=== PATIENT | male | born 1985 | race Caucasian/White ===

== ENCOUNTER 2024-01-23 10:21 | Emergency (ER) | payer OTHER, SELFPAY ==
[2024-01-23 10:45] VITALS: BP 119/78; PULSE 53; RESP 18; TEMP 36.4; O2SAT 100
--- NOTE | 2024-01-23 13:48 | ED.BACK ---
HPI - Back Pain/Injury General Chief Complaint: Back Pain/Injury Stated Complaint: right lower back pain Time Seen by Provider: 01/23/24 13:27 Source: patient and RN notes reviewed Mode of arrival: ambulatory Limitations: no limitations History of Present Illness HPI Narrative: This is a 39 year old male who presents for evaluation of right lower back pain. He states he noticed on that he has right lower back pain that is worse with bending, moving and coughing. He has been taking ibuprofen intermittently for pain. He states his pain was severe on . His pain has improved and it will occur intermittently now with certain positions. He denies pain radiating to his abdomen or down his leg. He also denies leg weakness, numbness or tingling. He dneies urinary complaints. HE does not have pain at this time. Related Data Allergies Allergy/AdvReac Type Severity Reaction Status Date / Time No Known Allergies Allergy Verified 01/23/24 10:23 Review of Systems Constitutional: Constitutional: Denies weakness Cardiovascular: Cardiovascular: Denies syncope, Denies rapid heart rate, Denies irregular heart rhythm, Denies leg edema and Denies dyspnea Respiratory: Respiratory: Denies chest congestion, Denies hemoptysis, Denies excessive phlegm production and Denies dyspnea Gastrointestinal: Gastrointestinal: Denies abdominal pain, Denies hematochezia, Denies diarrhea and Denies vomiting Genitourinary: Genitourinary: Denies hematuria, Denies dysuria, Denies penile discharge and Denies testicular pain Musculoskeletal: Musculoskeletal: Reports back pain, Denies joint swelling, Denies loss of height and Denies muscle weakness Neurologic: Denies syncope, Denies focal weakness and Denies weakness PMFSH Past Medical History Medical History (Updated 01/23/24 @ 21:16 by Marie Alexander MD) Patient denies medical problems Surgical History Surgical History (Updated 01/23/24 @ 21:16 by Marie Alexander MD) No pertinent past surgical history Exam Const: General: no acute distress and alert Nutritional Appearance: well nourished Orientation/consciousness: patient oriented x3 Limitations: no limitations HENMT: Head: normal to inspection Eyes: EOM: EOMs intact bilaterally Resp: Effort & Inspection: normal respiratory effort Auscultation: clear to auscultation bilaterally Cardio: Rate: regular rate Rhythm: regular rhythm Heart sounds: no murmurs GI: GI Palp: Yes Soft to palpation, No Tenderness to palpation present (GI), No Guarding due to palpation present (GI) and No Rigid due to palpation Auscultation: normal bowel sounds : General: Yes no CVA tenderness Back/Spine/Pelvis: Cervical Spine: No Cervical spine tenderness Thoracic/Lumbar Spine: No thoracic spinal tenderness and No lumbar spinal tenderness Skin: General skin exam: normal color Rashes: no rashes Neuro: General: patient oriented x3, moves all extremities and CN's II-XI intact bilaterally Extrem: General: normal to inspection Psych: Mental Status: mental status grossly normal Affect: normal affect Attitude: cooperative Course Reevaluation(s) Reevaluation #1: Patient has no pain currently. I discussed is likely muscular as he suspected. I discussed treatment with continued antiinflammatories and heat along with muscle relaxer. He states he does not need work note. He declined urinalysis at this time. Date: 01/23/24 Time: 13:56 Vital Signs Vital signs: Vital Signs Temperature 97.6 F 01/23/24 10:45 Pulse Rate 53 L 01/23/24 10:45 Respiratory Rate 18 01/23/24 10:45 Blood Pressure 119/78 01/23/24 10:45 Pulse Oximetry 100 01/23/24 10:45 Temperature 97.6 F 01/23/24 10:45 Pulse Rate 53 L 01/23/24 10:45 Respiratory Rate 18 01/23/24 10:45 Blood Pressure 119/78 01/23/24 10:45 Pulse Oximetry 100 01/23/24 10:45 Discharge Plan Discharge Clinical Impression: Back strain Qualifiers: Encounter t
== END 2024-01-23 14:09 | disposition home or self-care (01) ==
PROVIDERS: Emergency Provider General Practice
DX: S39.012A Strain of muscle, fascia and tendon of lower back, initial encounter (principal); W57.XXXA Bitten or stung by nonvenomous insect and other nonvenomous arthropods, initial encounter
CPT/HCPCS: 99283

== ENCOUNTER 2024-02-08 14:27 | Outpatient (CLI) | payer OTHER, SELFPAY ==
--- NOTE | ~2024-02-08 | US_ITS ---
EXAMINATION: US scrotum doppler DATE: 02/08/2024 16:15 INDICATION: Right testicular pain. TECHNIQUE: Grayscale and Doppler ultrasound images of the testes were obtained. COMPARISON: None. FINDINGS: The right testis measures 4.3 x 3.5 x 2.2 cm. The left testis measures 4.1 x 3.0 x 2.3 cm. There is normal vascular flow to both testes. The right epididymis is normal with normal vascular edmar w. The left epididymis demonstrates a 14 mm cyst. There is no hydrocele. There is a left-sided varico kenyon. IMPRESSION: 1. No etiology for the patient's symptoms. Reviewed, dictated and finalized at location E.
== END 2024-02-08 14:28 ==
PROVIDERS: PCP Nurse Practitioner Family; Visit Provider Nurse Practitioner Family
DX: N50.811 Right testicular pain (principal)
CPT/HCPCS: 76870; 93976

== ENCOUNTER 2024-05-16 08:33 | Outpatient (CLI) | payer OTHER, SELFPAY ==
--- NOTE | ~2024-05-16 | CT_ITS ---
Non-contrast CT scan of the Abdomen and Pelvis Clinical indication: Orchalgia Technique: 2.5 mm axial scans were obtained through the abdomen and pelvis without intravenous or or al contrast. Dose reduction technique was used on this scan by utilizing automated exposure control a nd iterative reconstruction technique. The dose-length product (DLP) was 408.93 mGy-cm. Findings: Images through the lung bases reveal no abnormalities. There is no evidence of renal or ureteral calculi. The kidneys and the ureters are nondilated. The liver, spleen, pancreas, gallbladder, and adrenals appear normal. There is no aortic aneurysm. There is no evidence of bowel obstruction. Images through the pelvis were performed. There is no evidence of ascites or lymphadenopathy. Urinary bladder unremarkable. No pelvic mass. Impression: No significant abnormality seen. Reviewed, dictated and finalized at [facility]. Impression: No significant abnormality seen.
== END 2024-05-16 08:34 | disposition home or self-care (01) ==
PROVIDERS: PCP Nurse Practitioner Family; Visit Provider Urology
DX: N50.819 Testicular pain, unspecified (principal)
CPT/HCPCS: 74176

== ENCOUNTER 2025-01-10 10:10 | Outpatient (CLI) | payer OTHER, SELFPAY ==
--- NOTE | ~2025-01-10 | US_ITS ---
US soft tissue head and neck 01/10/2025 10:45 Indication: Localized swelling Procedure: High-resolution Limited ultrasound of the neck Comparison: No prior studies for comparison. Findings: In the area of palpable concern there is a hypoechoic 6 mm mass with slightly irregular mar gins, dense posterior shadowing and no significant internal vascularity. Impression: 1: Left neck mass measuring 6 mm with posterior shadowing in the area of palpable concern. Recommend further evaluation with CT neck with contrast for further assessment. Reviewed, dictated and finalized at location [] Impression: 1: Left neck mass measuring 6 mm with posterior shadowing in the area of palpab le concern. Recommend further evaluation with CT neck with contrast for further assessment.
== END 2025-01-10 10:11 | disposition home or self-care (01) ==
PROVIDERS: PCP Nurse Practitioner Family; Visit Provider Nurse Practitioner Family
DX: R22.1 Localized swelling, mass and lump, neck (principal)
CPT/HCPCS: 76536

== ENCOUNTER 2025-02-21 13:59 | Outpatient (CLI) | payer OTHER, SELFPAY ==
--- NOTE | ~2025-02-21 | CT_ITS ---
CT scan of the Neck Technique: 2.5 mm axial scans were obtained through the neck after intravenous administration of 75 c c Omnipaque 350. Coronal and sagittal reconstructions of the neck were obtained. Dose reduction techn ique was used on this scan by utilizing automated exposure control and iterative reconstruction techn ique. The dose-length product (DLP) was 432.90 mGy-cm. Clinical History: Localized swelling/lump Findings: There is no evidence of any significant cervical lymphadenopathy. Several small, nonenlarged jugulo- digastric and posterior cervical lymph nodes are noted bilaterally. Parapharyngeal spaces appear norm al bilaterally. The parotid and submandibular glands appear normal. The pharyngeal mucosal spaces appear normal. No soft tissue masses are seen in the neck. The thyroid gland appears normal. Images of the lung apices reveal no abnormalities. Impression: No significant abnormalities noted. Reviewed, dictated and finalized at [facility]. Impression: No significant abnormalities noted.
--- OUTSIDE RECORDS SUMMARY | 2025-02-21 14:14 | XMS_ITS | Clinical Summary ---
Author Organization [facility] Address [address] [place] [id number] Care Team Providers Care Plate Sensitizer Name Role Phone None, Provider MD Primary Care Provider Unavaila ble Allergies No known active allergies Medications clotrimazole-be tamethasone (LOTRISONE) creamIndication s:Urethritis Apply topically 2 (two) times daily. 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 Urethritis 02/25/2022 Family History Medical History Relation Comments Dementia Maternal Grandmother Relation Status Comments Father Alive Maternal Grandmother Mother Alive Social History Tobacco Use Types Packs/Day Years Used Date Smoking Tobacco: Never Smokeless Tobacco: Never Tobacco Cessation:Counseling Given: Not Answered Alcohol Use Standard Drinks/Week Comments Not Currently 0 (1 standard drink = 0.6 oz pur e alcohol) PHQ-2 Answer Date Recorded PHQ-2 Score - If the patient scores above 3, please move on to questions 3-9 0 05/07/2022 Sex and Gender Information Value Date Recorded Sex Assigned at Not on file Legal Sex Male 8:47 AM CDT Gender Identity Not on file Sexual Orientation Not on file Last Filed Vital Signs Vital Sign Reading Time Taken Comments Blood Pressure 156/85 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 Pulse 62 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 Temperature 36.6 C (97.8 F) 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 Respiratory Rate 18 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 Oxygen Saturation 100% 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 Inhaled Oxygen Concentration - - Weight 81.3 kg (179 lb 3.2 oz) 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 Height 170.2 cm (5' 7) 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 Body Mass Index 28.07 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 Plan of Treatment Health Maintenance Due Date Last Done Comments Annual Physical 1989 Hepatitis C 01/06/2004 DTaP, Tdap and Td Vaccines ( 1 - Tdap) 2005 Hepatitis B Vaccines (1 of 3 - 19+ 3-dose series) 2005 HPV Vaccines (1 - 3-dose SCD M series) 2013 COVID-19 Vaccine (2023-2 5 season) 2024 Meningococcal B Vaccine Aged Out No l onger eligible based on patient's age to complete this topic Meningococcal Vaccine Aged Out No supa bridgette eligible based on patient's age to complete this topic Pneumococcal Vaccine: Pediat rics (0 to 5 Years) and At-Risk Patients (6 to 49 Years) Aged Out No longer eligible b ased on patient's age to complete this topic RSV Immunizations Under 20 Months Aged Out No longer eligible based on patient's age to complete this topic Care Teams Plate Sensitizer Relationship Specialty Start Date End Date None, Provider, PCP - General 02/24/22
== END 2025-02-21 14:00 | disposition home or self-care (01) ==
PROVIDERS: PCP Nurse Practitioner Family; Visit Provider Nurse Practitioner Family
DX: R93.89 Abnormal findings on diagnostic imaging of other specified body structures (principal)
CPT/HCPCS: 70491; Q9967